=== PATIENT | male | born 1970 | race Caucasian/White ===

== ENCOUNTER 2019-10-20 18:11 | Inpatient (IN) | payer SELFPAY ==
[2019-10-20] MEDS ORDERED: ONDANSETRON 4 MG/2 ML VIAL ONE (20:28)
[2019-10-20] MEDS ORDERED: MORPHINE 4 MG/ML SYR ONE (20:28)
[2019-10-20 20:29] LABS: Absolute Lymphocytes (CBC) 0.7 K/uL (0.7-4.9); Basophils % 0.6 % (0-1.3); Hematocrit 43.3 % (39.6-49.0); Lymphocytes % 5.5 % (15.3-44.8); MPV 8.8 fL (7.6-11.3); RBC Red Blood Cell Count 4.92 M/uL (4.33-5.43)
[2019-10-20] MEDS ORDERED: FAMOTIDINE 20 MG/2 ML VIAL IV ONE (20:29)
[2019-10-20 20:38] LABS: ALT/SGPT 36 U/L (12-78); AST/SGOT 21 U/L (15-37); Albumin 3.9 g/dL (3.4-5.0); Alkaline Phosphatase 125 U/L (45-117); BUN Blood Urea Nitrogen 14 mg/dL (7-18); Bicarbonate 26 mmol/L (21-32); Bilirubin Direct < 0.1 mg/dL (0-0.2); Bilirubin Total 0.3 mg/dL (0.2-1.0); Glucose Level 158 mg/dL (74-106); Lipase 80 U/L (73-393); Potassium 4.3 mmol/L (3.5-5.1); Protein, Total 8.1 g/dL (6.4-8.2); Sodium Level 141 mmol/L (136-145)
--- NOTE | 2019-10-20 20:56 | RAD REPORT ---
EXAM DESCRIPTION: CT - Abdomen Pelvis W Contrast - 10/20/2019 8:48 pm CLINICAL HISTORY: ABD PAIN COMPARISON: No comparisons TECHNIQUE: Biphasic, helical CT imaging of the abdomen and pelvis was performed following 100 ml non -ionic IV contrast. No oral contrast administered All CT scans are performed using dose optimization technique as appropriate and may include automated exposure control or mA/KV adjustment according to patient size. FINDINGS: No suspicious findings in the lung bases. The liver, spleen, and pancreas show no suspicious findings. Multiple gallstones are identifiable. Ga llbladder wall is questionably edematous. No biliary tree abnormality. Symmetric renal function is seen with no hydronephrosis or suspicious renal mass. No pyelonephritis o r acute parenchymal process. No bladder abnormalities. No adrenal abnormalities. No dilated bowel loops or bowel wall thickening. Appendix is normal. No active GI process identifiabl e. No free air, free fluid or inflammatory stranding. No mass or bulky lymphadenopathy. Patient has a very small fat only umbilical hernia. There is a fat only left inguinal hernia. No acute bone finding. No acute vascular finding. IMPRESSION: Cholelithiasis with questionable gallbladder wall edema. Correlation is needed with any acute cholecystitis findings. No biliary tree abnormality or pancreatic abnormality. No other acute or significant finding.
--- NOTE | 2019-10-20 21:42 | ER ---
Nurse's Notes [facility] Name: Ashwin Morales Age: 49 yrs Sex: Male : 1970 Arrival Date: 10/20/2019 Time: 18:17 Bed 25 Private MD: Diagnosis: Cholecystitis, unspecified Presentation: 10/19 18:33 Chief complaint: Patient states: this pain started 6 hours ago and my stomach started tw2 hurting really bad, its more my right side and the middle but all over, i have had 4 bm today, i have been belching too and it is just not getting better, i think i am dehydrated and i got a blockage. Coronavirus screen: Patient denies a cough. Patient denies shortness of breath or difficulty breathing. Patient denies measured and/or subjective temperature greater than 100.4F prior to today's visit. Patient denies travel on a cruise ship or to a country the [facility] currently lists as an affected area. Patient denies contact with known and/or suspected case of COVID-19. Ebola Screen: Patient denies travel to an Ebola-affected area in the 21 days before illness onset. Initial Sepsis Screen: Does the patient meet any 2 criteria? No. Patient's initial sepsis screen is negative. Does the patient have a suspected source of infection? No. Patient's initial sepsis screen is negative. Risk Assessment: Do you want to hurt yourself or someone else? Patient reports no desire to harm self or others. Onset of symptoms was October 20, 2019. 18:33 Method Of Arrival: Ambulatory tw2 18:33 Acuity: NOELLE 3 tw2 18:35 Note i took one little bit of miralax and it said 3 days and i just couldn't wait that tw2 long. Triage Assessment: 18:36 General: Appears uncomfortable, obese, well groomed, Behavior is calm, cooperative, tw2 appropriate for age. Pain: Complains of pain in abdomen. GI: Reports lower abdominal pain, upper abdominal pain. Historical: - Allergies: 18:37 No Known Allergies; tw2 - Home Meds: 18:37 Prilosec 20 mg Oral cpDR 1 cap once daily [Active]; tw2 - PMHx: 18:37 GERD; tw2 - PSHx: 18:37 LEFT arm surgery; tw2 - Immunization history:: Adult Immunizations. - Social history:: Smoking status: Patient denies any tobacco usage or history of. Screenin:00 Abuse screen: Denies threats or abuse. Denies injuries from another. Nutritional wh screening: No deficits noted. Tuberculosis screening: No symptoms or risk factors identified. Fall Risk None identified. Assessment: 19:45 General: Appears in no apparent distress. Behavior is calm, cooperative, appropriate wh for age. Pain: Complains of pain in right upper quadrant Pain does not radiate. Pain currently is 8 out of 10 on a pain scale. Quality of pain is described as sharp, Pain began noon today Is intermittent. Neuro: Level of Consciousness is awake, alert, obeys commands, Oriented to person, place, time, situation, Appropriate for age. Cardiovascular: Heart tones S1 S2. Cardiovascular: Rhythm is sinus bradycardia. Respiratory: Airway is patent Respiratory effort is even, unlabored, Respiratory pattern is regular, symmetrical, Breath sounds are clear bilaterally. GI: Abdomen is flat, non-distended, Bowel sounds present X 4 quads. Abd is soft X 4 quads Abdomen is tender to palpation in right upper quadrant. GI: Reports upper abdominal pain. : No signs and/or symptoms were reported regarding the genitourinary system. EENT: No signs and/or symptoms were reported regarding the EENT system. Derm: Skin is intact, is healthy with good turgor, Skin is pink, warm \T\ dry. normal. Musculoskeletal: Circulation, motion, and sensation intact. 21:00 Reassessment: Patient appears in no apparent distress at this time. No changes from previously documented assessment. Patient and/or family updated on plan of care and expected duration. Pain level reassessed. Patient is alert, oriented x 3, equal unlabored respirations, skin warm/dry/pink. 22:14 Reassessment: Patient appears in no apparent distress at this time. No changes from previously documented assessment. Patient and/or family updated on plan of care and expected duration. Pain level reassessed. Patient is alert, oriented x 3, equal unlabored respirations, skin warm/dry/pink. MD at bedside explaining POC need for admit Patient states feeling better. Patient states symptoms have improved. Vital Signs: 18:33 BP 134 / 81; Pulse 53; Resp 18; Temp 97.9(TE); Pulse Ox 100% on R/A; Weight 93.89 kg tw2 (R); Height 5 ft. 5 in. (165.10 cm); Pain 8/10; 21:00 BP 110 / 66; Pulse 66; Resp 18; Pulse Ox 96% on R/A; wh 22:15 BP 101 / 52; Pulse 56; Resp 18; Pulse Ox 97% ; wh 18:33 Body Mass Index 34.45 (93.89 kg, 165.10 cm) tw2 ED Course: 18:17 Patient arrived in ED. mr 18:35 Triage completed. tw2 18:35 Arm band placed on. tw2 19:36 Geovany Nelson MD is Attending Physician. 7 19:55 Eduardo Valdes is Primary Nurse. 20:00 Patient has correct armband on for positive identification. Bed in low position. Call light in reach. Side rails up X 1. Pulse ox on. NIBP on. 20:00 Inserted saline lock: 20 gauge in left antecubital area, using aseptic technique. Blood collected. 20:26 Radiology exam delayed due to lab results not completed at this time. (BUN/Creatinine). 2 20:48 CT Abd/Pelvis - IV Contrast Only In Process Unspecified. EDWV 21:40 Flaquito Gonzalez is Hospitalizing Provider. [facility] 22:48 No provider procedures requiring assistance completed. Patient admitted, IV remains in place. Administered Medications: 20:25 Drug: morphine 4 mg {Note: RASS 0.} Route: IVP; Site: left antecubital; 21:18 Follow up: Response: No adverse reaction; Pain is decreased; RASS: Alert and Calm (0) 20:27 Drug: Zofran (Ondansetron) 4 mg Route: IVP; Site: left antecubital; 21:18 Follow up: Response: No adverse reaction; Nausea is decreased 20:29 Drug: Pepcid 20 mg Route: IVP; Site: left antecubital; 21:18 Follow up: Response: No adverse reaction 21:51 Drug: Zosyn 3.375 grams Route: IVPB; Infused Over: 60 mins; Site: left antecubital; 22:49 Follow up: Response: No adverse reaction; IV Status: Completed infusion Outcome: 21:41 Decision to Hospitalize by Provider. 7 23:01 Admitted to Med/surg accompanied by tech, via wheelchair, room 232, with chart, Report wh called to Ely Camacho RN 23:01 Condition: stable 23:01 Instructed on the need for admit, Demonstrated understanding of 23:09 Patient left the ED. mw2 Signatures: Dispatcher [employer] ED BaldwinMary peres Tara, RN RN 2 Susanne Young 2 Eduardo Valdes MyKena 2 Geovany Nelson MD MD 7
--- NOTE | 2019-10-20 21:42 | EDPHYS ---
Physician Documentation [facility] Name: Ashwin Morales Age: 49 yrs Sex: Male : 1970 Arrival Date: 10/20/2019 Time: 18:17 Bed 25 Private MD: ED Physician Geovany Nelson HPI: 10/19 20:26 This 49 yrs old Male presents to ER via Ambulatory with complaints of mh7 Abdominal Pain. 20:27 The patient presents with abdominal pain in the upper abdomen. Onset: The mh7 symptoms/episode began/occurred today. The symptoms do not radiate. Associated signs and symptoms: Pertinent negatives: nausea, vomiting, and diarrhea, anorexia, blood in stools, chest pain, constipation, diarrhea, dysuria, fever, headache, hematuria, nausea, palpitations, shortness of breath, testicular pain, vomiting, vomiting blood. The symptoms are described as intermittent, vague, waxing/waning. Modifying factors: The symptoms are alleviated by nothing, the symptoms are aggravated by food. Severity of pain: At its worst the pain was moderate today, in the emergency department the pain has improved moderately. The patient has experienced similar episodes in the past, several times. Historical: - Allergies: 18:37 No Known Allergies; tw2 - Home Meds: 18:37 Prilosec 20 mg Oral cpDR 1 cap once daily [Active]; tw2 - PMHx: 18:37 GERD; tw2 - PSHx: 18:37 LEFT arm surgery; tw2 - Immunization history:: Adult Immunizations. - Social history:: Smoking status: Patient denies any tobacco usage or history of. ROS: 20:27 Constitutional: Negative for fever, chills, and weight loss, Eyes: Negative for injury, mh7 pain, redness, and discharge, ENT: Negative for injury, pain, and discharge, Neck: Negative for injury, pain, and swelling, Cardiovascular: Negative for chest pain, palpitations, and edema, Respiratory: Negative for shortness of breath, cough, wheezing, and pleuritic chest pain, Back: Negative for injury and pain, : Negative for injury, bleeding, discharge, and swelling, MS/Extremity: Negative for injury and deformity, Skin: Negative for injury, rash, and discoloration, Neuro: Negative for headache, weakness, numbness, tingling, and seizure, Psych: Negative for depression, anxiety, suicide ideation, homicidal ideation, and hallucinations, Allergy/Immunology: Negative for hives, rash, and allergies, Endocrine: Negative for neck swelling, polydipsia, polyuria, polyphagia, and marked weight changes, Hematologic/Lymphatic: Negative for swollen nodes, abnormal bleeding, and unusual bruising. Exam: 20:27 Constitutional: This is a well developed, well nourished patient who is awake, alert, mh7 and in no acute distress. Head/Face: Normocephalic, atraumatic. Eyes: Pupils equal round and reactive to light, extra-ocular motions intact. Lids and lashes normal. Conjunctiva and sclera are non-icteric and not injected. Cornea within normal limits. Periorbital areas with no swelling, redness, or edema. Neck: Trachea midline, no thyromegaly or masses palpated, and no cervical lymphadenopathy. Supple, full range of motion without nuchal rigidity, or vertebral point tenderness. No Meningismus. Chest/axilla: Normal chest wall appearance and motion. Nontender with no deformity. No lesions are appreciated. Cardiovascular: Regular rate and rhythm with a normal S1 and S2. No gallops, murmurs, or rubs. Normal PMI, no JVD. No pulse deficits. Respiratory: Lungs have equal breath sounds bilaterally, clear to auscultation and percussion. No rales, rhonchi or wheezes noted. No increased work of breathing, no retractions or nasal flaring. 20:27 Back: No spinal tenderness. No costovertebral tenderness. Full range of motion. Skin: Warm, dry with normal turgor. Normal color with no rashes, no lesions, and no evidence of cellulitis. MS/ Extremity: Pulses equal, no cyanosis. Neurovascular intact. Full, normal range of motion. Neuro: Awake and alert, GCS 15, oriented to person, place, time, and situation. Cranial nerves II-XII grossly intact. Motor strength 5/5 in all extremities. Sensory grossly intact. Cerebellar exam normal. Normal gait. Psych: Awake, alert, with orientation to person, place and time. Behavior, mood, and affect are within normal limits. 20:27 Abdomen/GI: Inspection: abdomen appears normal, obese Bowel sounds: normal, in all quadrants, Palpation: moderate abdominal tenderness, in the right upper quadrant and right lower quadrant, Rectal exam: the exam is deferred, because of patient request, Indicators: McBurney's point is not tender, Arce's sign is negative, Rovsing's sign is negative, Obturator sign is negative, Psoas sign is negative, Liver: no appreciated palpable abnormalities. 20:31 ECG was reviewed by the Attending Physician. [facility] Vital Signs: 18:33 BP 134 / 81; Pulse 53; Resp 18; Temp 97.9(TE); Pulse Ox 100% on R/A; Weight 93.89 kg tw2 (R); Height 5 ft. 5 in. (165.10 cm); Pain 8/10; 21:00 BP 110 / 66; Pulse 66; Resp 18; Pulse Ox 96% on R/A; wh 22:15 BP 101 / 52; Pulse 56; Resp 18; Pulse Ox 97% ; wh 18:33 Body Mass Index 34.45 (93.89 kg, 165.10 cm) tw2 MDM: 20:06 Patient medically screened. [facility] 21:38 Differential diagnosis: AAA, appendicitis, bowel obstruction, cholecystitis, [facility] Cholelithiasis, diverticulitis, gastritis, myocardia ischemia or infarction, non-specific abd pain, pancreatitis, Peptic Ulcer Disease, Perf. Duodenal Ulcer, Pyelonephritis, urinary tract infection. Data reviewed: vital signs, nurses notes, lab test result(s), CBC, electrolytes, urinalysis, EKG, radiologic studies, CT scan. Data interpreted: Pulse oximetry: on room air is 96 %. Interpretation: normal. Counseling: I had a detailed discussion with the patient and/or guardian regarding: the historical points, exam findings, and any diagnostic results supporting the discharge/admit diagnosis, lab results, radiology results, the need for further work-up and treatment in the hospital. Response to treatment: the patient's symptoms have markedly improved after treatment. Physician consultation: Pratik Krishnan MD was contacted at 21:25, regarding consult, and will see patient in inpatient room, would like admission per Dr. Flaquito Gonzalez. 10/19 19:56 Order name: Basic Metabolic Panel; Complete Time: 21:21 10/19 19:56 Order name: CBC with Diff 10/19 19:56 Order name: Hepatic Function; Complete Time: 21:21 10/19 19:56 Order name: Lipase; Complete Time: 21:21 10/19 21:17 Order name: CBC Smear Scan [facility] 10/19 22:53 Order name: Manual Differential [facility] 10/19 19:56 Order name: IV Saline Lock; Complete Time: 19:56 10/19 19:56 Order name: Labs collected and sent; Complete Time: 19:56 10/19 20:07 Order name: EKG - Nurse/Tech; Complete Time: 20:30 mh7 10/19 20:08 Order name: CT Abd/Pelvis - IV Contrast Only; Complete Time: 21:21 mh7 EC:31 Rate is 57 beats/min. Rhythm is regular, Sinus bradycardia. QRS [place] is Normal. [place] mh7 interval is normal. QRS interval is normal. QT interval is normal. No Q waves. T waves are Normal. No ST changes noted. Clinical impression: Sinus bradycardia. Administered Medications: 20:25 Drug: morphine 4 mg {Note: RASS 0.} Route: IVP; Site: left antecubital; 21:18 Follow up: Response: No adverse reaction; Pain is decreased; RASS: Alert and Calm (0) 20:27 Drug: Zofran (Ondansetron) 4 mg Route: IVP; Site: left antecubital; 21:18 Follow up: Response: No adverse reaction; Nausea is decreased 20:29 Drug: Pepcid 20 mg Route: IVP; Site: left antecubital; 21:18 Follow up: Response: No adverse reaction 21:51 Drug: Zosyn 3.375 grams Route: IVPB; Infused Over: 60 mins; Site: left antecubital; 22:49 Follow up: Response: No adverse reaction; IV Status: Completed infusion Disposition: 10/20/19 21:41 Hospitalization ordered by Flaquito Gonzalez for Observation. Preliminary diagnosis is Cholecystitis, unspecified. - Bed requested for Telemetry/MedSurg (observation). - Status is Observation. mw2 - Condition is Stable. - Problem is new. - Symptoms have improved. Signatures: Dispatcher [employer] [facility] Mae Higgins RN RN tl1 Perla Eason RN RN tw2 Eduardo Valdes Ibeth Martinez 2 Geovany Nelson MD MD 7 Corrections: (The following items were deleted from the chart) 22:38 21:41 Hospitalization Ordered by Flaquito Gonzalez for Observation. Preliminary diagnosis tl1 is Cholecystitis, unspecified. Bed requested for Telemetry/MedSurg (observation). Status is Observation. Condition is Stable. Problem is new. Symptoms have improved. mh7 23:09 22:38 10/20/2019 21:41 Hospitalization Ordered by Flaquito Gonzalez for Observation. mw2 Preliminary diagnosis is Cholecystitis, unspecified. Bed requested for Telemetry/MedSurg (observation). Status is Observation. Condition is Stable. Problem is new. Symptoms have improved. tl1
[2019-10-20] MEDS ORDERED: PIPER/TAZO/NS 3.375gm 3.375 GM/100 ML BAG ONE (21:51)
--- NOTE | 2019-10-20 22:31 | P.HP ---
Certification for Inpatient Patient admitted to: Observation With expected LOS: <2 Midnights Practitioner: I am a practitioner with admitting privileges, knowledge of patient current condition, hospital course, and medical plan of care. Services: Services provided to patient in accordance with Admission requirements found in Title 42 Section 412.3 of the Code of Federal Regulations Patient History Date of Service: 10/20/19 Reason for admission: Abdominal pain History of Present Illness: 49-year-old gentleman with a history of GERD presented emergency department with a complaint of right upper quadrant abdominal pain of onset this morning, severe intensity, constant, not related to meals, no associated vomiting or diarrhea or nausea. Patient denies any fever. CT abdomen done in the emergency department suggested cholelithiasis and gallbladder wall edema which may indicate cholecystitis. Patient is admitted for further management. - Past Medical/Surgical History -: GERD -: Left arm surgery - Family History Brother -: Cancer Mother -: Cancer (Lung) Father -: Cancer (Lung) - Social History Smoking Status: Never smoker Alcohol use: Yes CD- Drugs: No Place of Residence: Home Review of Systems Other: Except as documented, all other systems reviewed and negative. Physical Examination - Physical Exam General: Alert, In no apparent distress, Oriented x3 HEENT: Mucous membr. moist/pink, Sclerae nonicteric Neck: Supple, JVD not distended Cardiovascular: No edema, Regular rate/rhythm, Normal S1 S2 Gastrointestinal: Normal bowel sounds, Non-distended, No rebound, No guarding, Tenderness (Right upper quadrant) Musculoskeletal: No swelling, No erythema Neurological: Normal speech, Normal strength at 5/5 x4 extr - Studies Laboratory Data (last 24 hrs) 10/20/19 19:30: WBC 13.1 H, Hgb 14.2, Hct 43.3, Plt Count 273 10/20/19 19:30: Sodium 141, Potassium 4.3, BUN 14, Creatinine 1.09, Glucose 158 H, Total Bilirubin 0.3, AST 21, ALT 36, Alkaline Phosphatase 125 H, Lipase 80 Assessment and Plan - Problems (Diagnosis) (1) Acute cholecystitis Current Visit: Yes Status: Acute (2) GERD (gastroesophageal reflux disease) Current Visit: Yes Status: Acute - Plan Admit to the Medical Floor. Start empiric antibiotics Pain management as needed. General Surgery consult. RUQ sonogram. - Advance Directives Does patient have a Living Will: No Does patient have a Durable POA for Healthcare: No
[2019-10-20 22:52] LABS: Blood Morphology Comment NOT SEEN (NOT SEEN); Platelet Estimate ADEQ
[2019-10-20] MEDS ORDERED: ONDANSETRON 4 MG/2 ML VIAL IV PRN (23:19)
[2019-10-20] MEDS: NA CHLORIDE 0.9% 1,000 ML IV SCH (23:46)
[2019-10-21 00:52] VITALS: BMI 34.2
[2019-10-21 06:11] LABS: Absolute Lymphocytes (CBC) 1.9 K/uL (0.7-4.9); Basophils % 0.7 % (0-1.3); Hematocrit 43.9 % (39.6-49.0); Lymphocytes % 17.3 % (15.3-44.8); MPV 8.3 fL (7.6-11.3); RBC Red Blood Cell Count 4.98 M/uL (4.33-5.43)
[2019-10-21] MEDS: CEFTRIAXONE/SWI 1gm 1 GM/10 ML SYR IV SCH (06:11)
[2019-10-21 06:13] LABS: Protime INR 0.98
[2019-10-21 06:28] LABS: Albumin 3.8 g/dL (3.4-5.0); Bilirubin Total 0.5 mg/dL (0.2-1.0); Magnesium 2.4 mg/dL (1.8-2.4); Phosphorus 3.3 mg/dL (2.5-4.9); Potassium 4.3 mmol/L (3.5-5.1); Protein, Total 7.6 g/dL (6.4-8.2)
[2019-10-21 06:41] LABS: Urine Appearance CLEAR; Urine Bilirubin NEGATIVE (NEG); Urine Blood NEGATIVE (NEG); Urine Color YELLOW; Urine Glucose NEGATIVE (NEG); Urine Protein NEGATIVE (NEG); Urine Specific Gravity >=1.030 (1.005-1.030); Urine Urobilinogen 0.2 mg/dL (0.2-1.0)
[2019-10-21 06:48] LABS: Urine Microscopic Reflex NO UMIC
[2019-10-21] MEDS: NA CHLORIDE 0.9% 1,000 ML IV SCH (11:15)
--- NOTE | 2019-10-21 13:57 | RAD REPORT ---
EXAM DESCRIPTION: US - Abdomen Exam Limited - 10/21/2019 1:45 pm CLINICAL HISTORY: cholelithiasis Abdominal pain COMPARISON: ABDOMINAL EXAM LIMITED dated 04/15/2009; Abdomen Pelvis W Contrast dated 10/20/2019 FINDINGS: The gallbladder demonstrates large shadowing gallstone. Mild gallbladder wall thickening a nd pericholecystic fluid seen. Gallbladder wall measures up to 4 mm. The common bile duct is normal m easuring 4 mm. The liver demonstrates no findings of intrahepatic biliary dilatation. IMPRESSION: Cholelithiasis with early findings of acute cholecystitis suspected.
[2019-10-21] MEDS: metroNIDAZOLE 500 MG TABLET PO SCH ×2 (14:08→21:00)
--- NOTE | 2019-10-21 15:50 | P.PN ---
Subjective Date of Service: 10/21/19 Chief Complaint: Abdominal pain Subjective: Doing well (Anxious to eat Abdominal pain much improved) Physical Examination - Vital Signs Temperature: 97 F Blood Pressure: 96/50 Pulse: 60 Respirations: 18 Pulse Ox (%): 99 - Physical Exam General: Alert, In no apparent distress, Oriented x3 HEENT: Atraumatic, Normocephalic, PERRLA, Mucous membr. moist/pink Neck: 2+ carotid pulse no bruit Respiratory: Clear to auscultation bilaterally, Normal air movement Cardiovascular: No edema, Normal pulses, Regular rate/rhythm, Normal S1 S2 Gastrointestinal: Normal bowel sounds, Soft and benign, Non-distended, No ascites, No tenderness Musculoskeletal: No clubbing, No swelling Integumentary: No rashes, No breakdown, No significant lesion Neurological: Normal gait, Normal speech, Normal strength at 5/5 x4 extr, Normal tone - Studies Laboratory Data (last 24 hrs) 10/21/19 05:59: Sodium 141, Potassium 4.3, BUN 12, Creatinine 1.06, Glucose 114 H, Phosphorus 3.3, Magnesium 2.4, Total Bilirubin 0.5, AST 25, ALT 37, Alkaline Phosphatase 119 H 10/21/19 05:59: PT 11.6, INR 0.98 10/21/19 05:59: WBC 11.2 H D, Hgb 14.3, Hct 43.9, Plt Count 300 10/20/19 19:30: WBC 13.1 H, Hgb 14.2, Hct 43.3, Plt Count 273 10/20/19 19:30: Sodium 141, Potassium 4.3, BUN 14, Creatinine 1.09, Glucose 158 H, Total Bilirubin 0.3, AST 21, ALT 36, Alkaline Phosphatase 125 H, Lipase 80 Microbiology Data (last 24 hrs): 10/21/19 00:00 Nasopharnyx Coronavirus COVID-19 PCR - Final Assessment And Plan - Current Problems (Diagnosis) (1) Acute cholecystitis Current Visit: Yes Status: Acute (2) GERD (gastroesophageal reflux disease) Current Visit: Yes Status: Acute Physician Review: Patient Assessed, Agree with Above Assessment and Plan Physician Review Additional Text: # Acute cholecystitis- evaluated by surgery, plan for conservative management for now. Start pleural intake and advanced diet as tolerated. If tolerating diet well today can plan for discharge tomorrow with 1 week of antibiotics If worsening and unable to tolerate p.o. will need cholecystectomy in a.m. Dr Krishnan d/w # GERD- on PPI Time Spent Managing PTS Care (In Minutes): 35
--- NOTE | 2019-10-21 17:52 | CON ---
Date of Consultation: 10/21/2019 Brief History Of Present Illness: Patient is a 49-year-old male with a history of GERD who presents to the emergency room with complaints of epigastric and right upper quadrant abdominal pain , which was severe in intensity, constant, not related to meals. No associated vomiting, nausea, ila rrhea. He denies any fever, chills, sick contacts. No recent travel. No new food exposures. It is somewhat similar to the pain and the GERD he has had in the past and epigastric abdominal pain in th e past, but he states that it has never been to this level of intensity. Since being admitted to the hospital last evening, he states that the pain is essentially almost resolved. At this point, it is more of a dull ache in the epigastric region without radiation to the right upper quadrant or throug h to his back. He feels significantly better and is asking for possible start of a meal at this poin t. Past Medical History: Significant for GERD and left arm surgery for trauma. Social History: He denies smoking. He drinks alcohol recreationally. He denies recreational drug. Review of Systems: 10-point review of systems other than HPI denies. Allergies: NO KNOWN DRUG ALLERGIES. Medications: None reported. Physical Examination: Vital Signs: At the time of my examination, his BMI is 34. His temperature of 97, heart rate 60, re spiratory rate 18, blood pressure 96/50, SpO2 100% on room air. His pain level was 0 during my exami nation. General: He is awake, alert, oriented. Psychiatric: Appropriate, conversive. HEENT: Normocephalic. Sclerae anicteric. Mucous membranes are moist. Oropharynx clear. Neck: Supple. No JVD. Chest: Normal expansion and excursion. Cardiovascular: Regular rate and rhythm. Pulmonary: Clear to auscultation bilaterally. Abdomen: Soft with mild epigastric tenderness to palpation. No rebound. No guarding. No focal per itonitis. Negative Arce sign. No pain in the right upper quadrant. Extremities: No clubbing, cyanosis, or edema. SKIN: Warm and dry. Laboratory Data: His white blood count 11.2, hemoglobin is 14.9, hematocrit 43.9, platelet count is 300. His neutrophils are 74%. His PT was 11.6, INR 0.98 on admission. His sodium 141, potassium 4. 3, chloride 106, carbon dioxide 28, BUN 12, creatinine 1.06, glucose was 114. His phosphorus was 3.3 . Total bilirubin 0.5, his direct component was less than 0.1 on admission. His AST was 25, ALT 37, alkaline phosphatase 119. His lipase was 80 on admission. UA was essentially negative. He had alexus ging performed, which included a CT of the abdomen and pelvis which showed cholelithiasis with questi onable gallbladder wall edema. Correlation needed with acute cholecystitis findings. No biliary ashly e abnormality or pancreatic abnormality. No other acute significant findings. Assessment And Plan: This is a 49-year-old male who comes in with epigastric abdominal pain, possibl e symptomatic cholelithiasis versus gastritis. 1.IV fluid hydration. 2.Antibiotic coverage. 3.Recommend trial of p.o. clear liquids and advance as tolerated. If patient is able to tolerate di et, he can be discharged home with followup as an outpatient. 4.If patient is unable to tolerate, then we can consider continued workup to delineate if this is a cholecystitis, possibly consider HIDA scan to confirm the diagnosis. If confirmed, the patient shoul d be considered for laparoscopic cholecystectomy. I have explained the risks, benefits, and alternat marianne of the above-stated plan including, but not limited to bleeding, infection, damage to surroundin g tissues, injury to bile ducts and intestines, need for further operations procedures, patient agrees to proceed as indicated. ANGELA/SADIE Voice ID: [id number] Report ID: [id number]
[2019-10-22] MEDS: CEFTRIAXONE/SWI 1gm 1 GM/10 ML SYR IV SCH (06:03)
--- NOTE | 2019-10-22 07:17 | EKG ---
Test Date: 2019-10-20 Test Time: 20:22:59 [employer] Recorder: RUBY MEASUREMENT RESULTS: Intervals: Rate: 57 RI: 160 QRSD: 100 QT: 436 QTc: 424 Garrison: P: 60 RI: 160 QRS: 63 T: 56 INTERPRETIVE STATEMENTS: Sinus bradycardia Otherwise normal ECG Compared to ECG 04/15/2009 12:21:52 No significant changes Electronically Signed On 10-22-19 07:15:19 CDT by Santo Washington
[2019-10-22 07:39] LABS: Absolute Lymphocytes (CBC) 1.3 K/uL (0.7-4.9); Basophils % 0.9 % (0-1.3); Hematocrit 42.5 % (39.6-49.0); Lymphocytes % 14.9 % (15.3-44.8); MPV 8.2 fL (7.6-11.3); RBC Red Blood Cell Count 4.79 M/uL (4.33-5.43)
[2019-10-22] MEDS: metroNIDAZOLE 500 MG TABLET PO SCH (07:57)
[2019-10-22 08:05] LABS: Albumin 3.5 g/dL (3.4-5.0); Bilirubin Total 0.4 mg/dL (0.2-1.0); Potassium 4.9 mmol/L (3.5-5.1); Protein, Total 7.5 g/dL (6.4-8.2)
[2019-10-22 08:47] VITALS: BP 96/52; TEMP 96.9
[2019-10-22 09:34] VITALS: O2SAT 97
--- NOTE | 2019-10-22 15:00 | DS ---
Date of Discharge: 10/22/2019 Consultants: Dr. Krishnan Procedures: None. Admitting Diagnoses: 1.Acute cholecystitis. 2.Gastroesophageal reflux disease. Discharge Diagnoses: 1.Acute cholecystitis, improved. 2.Gastroesophageal reflux disease without esophagitis. 3.Obesity. BMI 34. Hospital Course: Patient is a 49-year-old male with past medical history of GERD, comes in with righ t upper quadrant abdominal pain. Patient was admitted for further evaluation. CT scan showed cholel ithiasis and gallbladder wall edema indicating cholecystitis. Patient was started on IV antibiotics. Patient was seen by general surgeon, Dr. Krishnan. Abdominal ultrasound showed cholelithiasis with early findings of acute cholecystitis. The patient responded well to IV antibiotics. His white bloo d cell count normalized. He did well overall. Pain resolved. The patient was recommended to have o utpatient followup and surgery. He was started on diet, able to tolerate full liquids. He was given handout regarding low-fat diet. He is to avoid fried fatty foods. Patient to follow up with Dr. David zhong as an outpatient to schedule surgery. Follow up with primary care physician in 2 to 3 days. R eturn to ER for worsening condition. Diet: Low fat. Activity: As tolerated. Medications: As per medication reconciliation list. Finish up course of antibiotics for a total of 10 days. Physical Examination: General: Awake, alert, oriented x3, in no acute distress. Obese male. CV: S1, S2. Respiratory: Moving air well bilaterally. Abdomen: Soft, nontender, nondistended. Positive bowel sounds. Extremities: No clubbing, cyanosis, or edema. Neuro: Nonfocal. Total time spent discharging patient was 37 minutes. /SADIE Voice ID: [id number] Report ID: [id number]
== END 2019-10-22 11:20 | disposition home or self-care (01) | DRG 446 ==
LOC: ER 18:11 → ERHOLD 22:38 → 2ND 22:56 → OBSVTOIN 10-21 09:23
PROVIDERS: ADMIT Internal Medicine; ATTEND Internal Medicine
DX: K80.00 Calculus of gallbladder with acute cholecystitis without obstruction (principal); K21.9 Gastro-esophageal reflux disease without esophagitis; E66.9 Obesity, unspecified; Z68.34 Body mass index [BMI] 34.0-34.9, adult; Z79.899 Other long term (current) drug therapy
CPT/HCPCS: 36415; 74177; 76705; 80048; 80053; 80076; 81003; 83690; 83735; 84100; 85025; 85610; 93005; 96365; 96375; 99285; G0378; J0696; J2405; J2543; J7030; Q9967; U0002